=== PATIENT | female | born 1980 | race Caucasian/White ===

== ENCOUNTER → 2021-02-15 13:47 | Outpatient (BNVA) | payer BC, MEDICAID, SELFPAY | PROVIDERS: Family Provider Nurse Practitioner Family; Visit Provider Nurse Practitioner Family | DX: J32.0 Chronic maxillary sinusitis (principal); R05.9 Cough, unspecified; R50.9 Fever, unspecified; Z20.822 Contact with and (suspected) exposure to COVID-19 | CPT/HCPCS: 87635 ==

== ENCOUNTER 2021-02-18 11:40 | Emergency (ER) | payer BC, MEDICAID, SELFPAY ==
[2021-02-18 11:51] VITALS: BMI 30.1
--- NOTE | 2021-02-18 11:51 | CT_ITS ---
WS: [id number] CT HEAD TECHNIQUE: Noncontrast CT of the head obtained from the skullbase to the vertex. CLINICAL INFORMATION: R mastoid tenderness COMPARISON: 3 14,018 DLP: 697.[address] scans at [facility] use at least one of these dose optimization techniques: automated e xposure control; mA and/or kV adjustment per patient size (includes targeted exams where dose is matc hed to clinical indication); or iterative reconstruction. FINDINGS: No evidence of intracranial hemorrhage or mass effect. Ventricular system and basal cisterns are carlson nt. No extra-axial fluid collections. No evidence of mass or mass effect. Normal oliver-white different iation. Paranasal sinuses and mastoid air cells are well aerated. .Normal visualized soft tissues. CT/CT head wo con* [id number] IMPRESSION: 1. No evidence of intracranial hemorrhage or mass effect. 2. Normal oliver-white differentiation. 3. Mastoid air cells well aerated. 4. No acute intracranial findings.
--- NOTE | 2021-02-18 12:00 | W.ED.GENADLT ---
HPI - General Adult General: Chief complaint: Abdominal Pain Stated complaint: N/V, WEAKNESS X 2 DAYS Time Seen by Provider: 02/18/21 11:42 History of Present Illness: HPI narrative: Patient is a 40-year-old female presents emergency room with 2 days of cough, nausea/vomiting, vertigo-like symptoms. Patient had ear pain on Monday but has not had any ear pains sincethen. Patient tells me that on Monday, patient went to see provider Jeri Jovany was prescribed Keflex for right-sided facial swelling and sinusitis. Assessment patient has been taking her Keflex compliantly. Her facial swelling has resolved significantly. However over the last 2 days, patient has noticed intermittent episode of positional vertigo accompanied by nausea and vomiting. Patient has had 3 episodes earlier today. In addition, patient reports a cough and muscle aches. Patient has not been in contact with any COVID positive personnel's. Patient denies any abdominal complaints, diarrhea, melena hematochezia or urinary complaints. Patient has no neck pain, no focal weakness, double vision, eye pain, ear discharge, slurring of speech, facial droop, difficulty chewing, or loss/changes of sensations on the face. Denies any tinnitis. Onset: 2 days ago Duration:2 days Location:home Severity:moderate Associated symptoms: Reports nausea and vomiting; Deny chest pain, dyspnea, rash or palpitations Review of Systems Const: Denies: fever(s) or chills Eyes: Denies: change in vision ENMT: Reports: other (+vertigo symptoms); Denies: mouth pain Card: Denies: chest pain or palpitations Resp: Reports: non-productive cough; Denies: dyspnea GI: Reports: nausea and vomiting; Denies: abdominal pain or diarrhea : Denies: dysuria Musc: Denies: extremity pain Skin/Breast: Denies: rash or new lesions Neuro: Denies: weakness in extremities Psych: Reports: other (Normal mood) Rikki/Lymph: Denies: easy bruising [facility] ED PFSH: Medical History Maxillary sinusitis Family History Denies family history of CAD (coronary artery disease) Cancer Social History Smoking and tobacco status: current every day smoker Physical Exam Const: COMMON NORMALS: alert HENMT: COMMON NORMALS: atraumatic and TM's normal bilaterally HEAD & SCALP: atraumatic TYMPANIC MEMBRANE: TM's normal bilaterally and other (+R posterior auricular tenderness to palpation) MOUTH: moist mucous membranes not abnormal OTHER: No tenderness to paelpation over the R ear on tugging of the tragus Eye: COMMON NORMALS: EOMs intact bilaterally and conjunctivae normal CONJUNCTIVA: Yes conjunctivae normal Neck/C-Spine: COMMON NORMALS: full ROM and supple Resp: COMMON NORMALS: normal respiratory effort and clear to auscultation bilaterally AUSCULTATION: clear to auscultation bilaterally Cardio: COMMON NORMALS: regular rate RATE: regular rate GI: COMMON NORMALS: Soft to palpation and non-tender PALPATION: Yes Soft to palpation Extremity: COMMON NORMALS: full ROM Neuro: SENSORIUM/ORIENTATION: Yes alert MOTOR EXAM: No Abnormal motor strength present and Other motor observations present (no focal motor deficits) OTHER: Mental status? Awake, alert, and oriented to self, year, month, location, and situation.? Following simple axial and appendicular commands.? Has appropriate fund of knowledge, comprehension, and insight.? Able to recall and understands pertinent aspects of medical history and current treatment status.? ? Language? Speech is fluent without word-finding difficulties.? Intact naming, expression, nurse receptionist, and repetition.? ? Cranial nerves? 2,3,4,6: PERRL, EOMI with no nystagmus. 5: Intact sensation to light touch, symmetric? 7: Smile symmetrical, no facial droop.? 8: Hearing grossly intact.? 9,10: Normal palate movement.? 11: Normal strength in trapezius bilaterally 12: Tongue protrudes midline.? Psych: COMMON NORMALS: speech normal SPEECH: Yes normal speech MOOD & AFFECT: Yes euthymic mood Course Vital Signs: Vital signs: Vital Signs Temperature 98.1 F 02/18/21 12:05 Pulse Rate 81 02/18/21 12:05 Respiratory Rate 16 02/18/21 12:05 Blood Pressure 110/68 02/18/21 12:05 Pulse Oximetry 99 02/18/21 12:05 MDM - General Adult MDM Narrative: Medical decision making narrative: Patient is a 40-year-old female presenting to the emergency room with concerns of cough, nausea vomiting, vertigo-like symptoms x2 days. On exam, patient has no focal findings neurologically. TM is intact bilaterally. Patient has mild right postauricular sinus palpation. Given findings, will evaluate for mastoiditis. No suspicion for meningitis, crowder booth syndrome, herpes zoster ophthalmicus, labrinythitis, or other emergent pathologies for the vertigo symptoms with nausea/vomiting. CT scan negative for any signs of mastoiditis. Patient has white count of 4.9. Patient has no vertical symptoms in the emergency room. Patient received IV Zofran, meclizine PO, IVF and GI cocktail with significant symptom. At the present time, do not suspect that this is viral or bacterial labyrinthitis. Covid test currently pending. She ambulated without any difficulty and has been able to tolerate p.o. without issues. Symptoms of cough, nausea/vomiting most likely viral related. Patient is given close follow-up with primary care provider. No signs of respiratory distress in the ED. Patient had O2 sat>95% while in the ED. Patient is aware that her covid test is pending. I have given patient follow up with our [employer] to be seen by our outpatient ENT provider for vertigo symptoms. Patient aware of a call from our [employer] to schedule for appointment(s) and verbalizes understanding of the importance of following up. I have given patient follow up with our [employer] to be seen by our PCP for nausea/vomiting and URI symptoms. Patient aware of a call from our [employer] to schedule for appointment(s) and verbalizes understanding of the importance of following up. Rx meclizine PRN vertigo, zofran PRN nausea/vomiting Disposition: Discharge. Patient counseled regarding diagnostic impression, treatment plan. Patient given ED strict return precautions to return for continuation, worsening, or development of new symptoms. Instructed to f/u w/ PCP regarding symptoms today. Patient verbalized understanding. Lab Data: Labs: Lab Results 02/18/21 02/18/21 02/18/21 12:38 12:38 12:38 WBC 4.9 10^3/uL 10^3/ uL (4.0-10.0) RBC 5.24 10^6/uL 10^6 /uL (4.1-5.3) Hgb 15.3 g/dL g/dL (11.5-15.3) Hct 45.8 % % (37.0-47.0) MCV 87.4 fl fl (81-99) MCH 29.2 pg pg (28.0-34.0) MCHC 33.4 g/dL g/dL (30.0-36.0) RDW 13.6 % % (12.1-15.1) Plt Count 228 10^3/cmm 10^3 /cmm (130-400) MPV 10.6 fL H fL (7.4-10.4) Neut % (Auto) 59.6 % % Lymph % (Auto) 29.2 % % [place] % (Auto) 9.2 % % Eos % (Auto) 1.4 % % Baso % (Auto) 0.4 % % Neut # (Auto) 2.91 10^3/uL 10^3 /uL (1.8-7.7) Lymph # (Auto) 1.4 10^3/uL 10^3/ uL (0.8-4.8) [place] # (Auto) 0.5 10^3/uL 10^3/ uL (0.2-0.9) Eos # (Auto) 0.1 10^3/uL 10^3/ uL (0.0-0.8) Baso # (Auto) 0.0 10^3/uL 10^3/ uL (0.0-0.1) Nucleated RBC % (a uto) 0 % % Nucleated RBCs # 0.0 /100WBC /100W BC Sodium 138 mmol/L mmol/L (136-145) Potassium 3.6 mmol/L mmol/L (3.5-5.1) Chloride 100 mmol/L mmol/L (98-107) Carbon Dioxide 24 mmol/L mmol/L (22-29) Anion Gap 17.6 (5-19) BUN 13 mg/dL mg/dL (6-20) Creatinine 0.7 mg/dL mg/dL (0.5-0.9) GFR Calculation 93.2 mL/min mL/mi n (90-130) Glucose 85 mg/dL mg/dL (65-115) Calculated Osmolal ity 285 mOsm/kg mOsm/ kg (285-295) Calcium 8.2 mg/dL L mg/dL (8.5-10.5) Total Bilirubin 0.3 mg/dL mg/dL (0.15-1.2) AST 20 U/L U/L (0-32) ALT 26 U/L U/L (0-33) Alkaline Phosphata se 91 IU/L IU/L (35-105) Total Protein 7.6 g/dL g/dL (6.6-8.7) Albumin 3.9 g/dL g/dL (3.5-5.2) Globulin 3.7 g/dL g/dL (1.3-4.6) Lipase 22 U/L U/L (13-60) HCG, Qual Negative (Negative) Imaging Data^: Other Imaging: Radiologist's impression: [address] [id number] Scan ReportSigned Patient: Delfina Mcintosh #: [id number]: [id number]#:[id number]/Sex: 40 / FADM Date: 02/18/21Loc: ERRoom/Bed:Attending Dr: Ordering Provider/Ordering MD: Bharathi Pat MD Date of Service: 02/18/21 Procedure(s): CT facial bones wo con* [id number] Accession Number(s): [id number] Report Number: [id number] WS: [id number] CT FACIAL BONES TECHNIQUE: Noncontrast facial bones with coronal and sagittal reformatted images. CLINICAL INFORMATION: eval for infection COMPARISON: None. DLP: 724.[address] scans at [facility] use at least one of these dose optimization techniques: automated exposure control; mA and/or kV adjustment per patient size (includes targeted exams where dose is matched to clinical indication); or iterative reconstruction. FINDINGS: Trace mucosal thickening in the paranasal sinuses. No evidence of sinusitis. Mastoid air cells are well aerated. No evidence of mastoiditis. Normal visualized soft tissues. External auditory canals appear patent. Normal posterior nasopharynx. Normal parapharyngeal fat. Normal parotid glands and submandibular glands. Subchondral cystic change with degenerative flattening involving the right mandibular condyle. Left mandibular condyle is normal. CT/CT facial bones wo con* [id number] IMPRESSION: 1. Mastoid air cells well aerated. No evidence of mastoiditis. 2. Trace mucosal thickening in the paranasal sinuses. No evidence of sinusitis. 3. Subchondral cystic change with flattening of the right mandibular condyle. Recommend correlation for right TMJ symptoms. Left mandibular condyle is normal. 4. No other significant findings. Dictated By:Roel Cardenas MDSigned By:Roel Cardenas MDSigned Date/Time:02/18/21 1308DD/ 1303 [facility] [place], [place] [address]QM Scan ReportSigned Patient: Delfina Mcintosh #: [id number]: [id number]#:[id number]/Sex: 40 / FADM Date: 02/18/21Loc: ERRoom/Bed:Attending Dr: Ordering Provider/Ordering MD: Bharathi Pat MD Date of Service: 02/18/21 Procedure(s): CT head wo con* [id number] Accession Number(s): [id number] Report Number: [id number] WS: [id number] CT HEAD TECHNIQUE: Noncontrast CT of the head obtained from the skullbase to the vertex. CLINICAL INFORMATION: R mastoid tenderness COMPARISON: 3 14,018 DLP: 697.[address] scans at [facility] use at least one of these dose optimization techniques: automated exposure control; mA and/or kV adjustment per patient size (includes targeted exams where dose is matched to clinical indication); or iterative reconstruction. FINDINGS: No evidence of intracranial hemorrhage or mass effect. Ventricular system and basal cisterns are patent. No extra-axial fluid collections. No evidence of mass or mass effect. Normal oliver-white differentiation. Paranasal sinuses and mastoid air cells are well aerated. .Normal visualized soft tissues. CT/CT head wo con* [id number] IMPRESSION: 1. No evidence of intracranial hemorrhage or mass effect. 2. Normal oliver-white differentiation. 3. Mastoid air cells well aerated. 4. No acute intracranial findings. Dictated By:Roel Cardenas MDSigned By:Roel Cardenas MDSigned Date/Time:02/18/21 1303DD/ 1259 Discharge Plan Discharge Patient Disposition: Home Clinical Impression: Nausea & vomiting, Cough, Vertigo Condition: Stable Prescriptions: New Zofran 4 mg tablet 4 mg PO TID PRN (Reason: nausea and vomiting) 4 Days Qty: 12 RF: 0 acetaminophen 500 mg tablet 500 mg PO Q6H PRN (Reason: pain) 5 Days Qty: 20 RF: 0 Pepcid 20 mg tablet 20 mg PO BID PRN (Reason: abdominal pain) 10 Days Qty: 20 RF: 0 meclizine 25 mg tablet 25 mg PO BID PRN (Reason: vertigo) 5 Days Qty: 10 RF: 0 No Action methylprednisolone [Medrol (Franco)] 4 mg tablets,dose pack See Rx Instructions PO PER PKG DIR Qty: 21 RF: 0 cephalexin 500 mg capsule 500 mg PO TID 10 Days Qty: 30 RF: 0 levocetirizine [Xyzal] 5 mg tablet 5 mg PO DAILY 90 Days Qty: 90 RF: 1 Discharge Orders: Discharge ED (Routine); Ordered 02/18/21 Ordered By: Bharathi Pat Discharge Diet: Advance as tolerated Discharge Activity: Resume usual activity Patient Instructions: Dizziness (ED), Acute Cough (ED) Activity Restrictions/Additional Instructions: Our [employer] [employer] will have you follow-up with an ear/nose/throat doctor in the next few days. You would be expected to have a phone call with our [employer] who will put you on the schedule. I think this is more lightheadedness, nausea/vomiting inability to hold food or liquid down fever chills, ear pain, worsening strength sensation or any new external complaints Stand Alone Forms: Work/School Release Coding Level of Care Code ED Synthetic Department Supervisor for Chg Fwd Exam Comprehensive
--- NOTE | 2021-02-18 12:03 | CT_ITS ---
WS: OMCRAD2 CT FACIAL BONES TECHNIQUE: Noncontrast facial bones with coronal and sagittal reformatted images. CLINICAL INFORMATION: eval for infection COMPARISON: None. DLP: 724.[address] scans at [facility] use at least one of these dose optimization techniques: automated e xposure control; mA and/or kV adjustment per patient size (includes targeted exams where dose is matc hed to clinical indication); or iterative reconstruction. FINDINGS: Trace mucosal thickening in the paranasal sinuses. No evidence of sinusitis. Mastoid air ce lls are well aerated. No evidence of mastoiditis. Normal visualized soft tissues. External auditory c anals appear patent. Normal posterior nasopharynx. Normal parapharyngeal fat. Normal parotid glands a nd submandibular glands. Subchondral cystic change with degenerative flattening involving the right mandibular condyle. Left m andibular condyle is normal. CT/CT facial bones wo con* [id number] IMPRESSION: 1. Mastoid air cells well aerated. No evidence of mastoiditis. 2. Trace mucosal thickening in the paranasal sinuses. No evidence of sinusitis . 3. Subchondral cystic change with flattening of the right mandibular condyle. Recommend correlation for right TMJ symptoms. Left mandibular condyle is normal . 4. No other significant findings.
[2021-02-18 12:05] VITALS: BP 110/68; PULSE 81; RESP 16; TEMP 36.7; O2SAT 99
[2021-02-18 12:51] LABS: Basophils % 0.4 %; Eosinophils # 0.1 10^3/uL (0.0-0.8); Eosinophils % 1.4 %; Hematocrit 45.8 % (37.0-47.0); Hemoglobin 15.3 g/dL (11.5-15.3); Lymphocytes # 1.4 10^3/uL (0.8-4.8); Lymphocytes % 29.2 %; Mean Corpuscular HGB Conc 33.4 g/dL (30.0-36.0); Mean Corpuscular Hemoglobin 29.2 pg (28.0-34.0); Mean Corpuscular Volume 87.4 fl (81-99); Mean Platelet Volume 10.6 fL (7.4-10.4); Monocytes # 0.5 10^3/uL (0.2-0.9); Monocytes % 9.2 %; Neutrophils # 2.91 10^3/uL (1.8-7.7); Neutrophils % 59.6 %; Nucleated Red Blood Cells % 0 %; Platelet Count 228 10^3/cmm (130-400); Red Blood Count 5.24 10^6/uL (4.1-5.3); Red Cell Distribution Width 13.6 % (12.1-15.1); White Blood Count 4.9 10^3/uL (4.0-10.0)
[2021-02-18] MEDS: lidocaine 2% viscous 15 ML, aluminum-mag hydrox-simethicon 30 ML, sucralfate oral liq 1 GM PO (12:52)
[2021-02-18] MEDS: meclizine 25 mg tablet 50 MG PO (12:54)
[2021-02-18] MEDS: ondansetron 2 mg/ML SDV 2 mL 4 MG IVP (12:55)
[2021-02-18] MEDS: sodium chloride 0.9% 1,000 ML 999 ML IV (12:56)
[2021-02-18 13:00] LABS: HCG, Serum Qual Negative (Negative)
[2021-02-18 13:12] LABS: Alanine Aminotransferase 26 U/L (0-33); Albumin Level 3.9 g/dL (3.5-5.2); Alkaline Phosphatase 91 IU/L (35-105); Anion Gap 17.6 (5-19); Aspartate Amino Transferase 20 U/L (0-32); Blood Urea Nitrogen 13 mg/dL (6-20); Calcium 8.2 mg/dL (8.5-10.5); Carbon Dioxide 24 mmol/L (22-29); Chloride 100 mmol/L (98-107); Globulin 3.7 g/dL (1.3-4.6); Glomerular Filtration Rate 93.2 mL/min (90-130); Glucose 85 mg/dL (65-115); Lipase 22 U/L (13-60); Osmolality Calculated 285 mOsm/kg (285-295); Potassium 3.6 mmol/L (3.5-5.1); Sodium 138 mmol/L (136-145); Total Bilirubin 0.3 mg/dL (0.15-1.2); Total Protein 7.6 g/dL (6.6-8.7)
--- NOTE | 2021-02-18 14:10 | PC.NURSE ---
VISUAL ACUITY TEST PERFORMED. VISUAL MILLER READ 20/20.
[2021-02-18 14:15] VITALS: BP 122/71; PULSE 80; O2SAT 98
--- NOTE | 2021-02-19 09:07 | DCPLANNER ---
manager human resources had message to schedule a follow up appointment for patient with ENT. manager human resources emailed Joan Swartz and Ilsa at [facility] General Surgery / ENT clinic. Patients information will be printed and reviewed. Clinic will call patient with appointment information.
--- NOTE | 2021-02-19 09:11 | DCPLANNER ---
product manager also had message to speak with patient about getting established with a primary care physician. product manager called phone number [phone], unable to speak with patient at this time. product manager was able to leave a voicemail for patient to return returned case inspector phone call.
--- NOTE | 2021-02-22 07:37 | DCPLANNER ---
Patient has a follow up appointment scheduled for Wednesday, March 03, 2021 at 1:[address] Montes. Clinic will call patient with appointment information.
--- NOTE | 2021-02-22 07:50 | DCPLANNER ---
Addendum entered by Cate Carvajal 03/11/21 16:58: Patient had a follow up appointment scheduled for 03.03.21 with ENT - patient did not attend appointment. Original Note: Patient has a follow up appointment scheduled for Wednesday, March 03, 2021 at 1:[address] Montes at ENT. Clinic will call patient with appointment information.
== END 2021-02-18 14:17 | disposition home or self-care (01) ==
PROVIDERS: Emergency Provider Emergency Medicine
DX: R05.9 Cough, unspecified (principal); R11.2 Nausea with vomiting, unspecified; R42 Dizziness and giddiness; F17.210 Nicotine dependence, cigarettes, uncomplicated
CPT/HCPCS: 70450; 70486; 80053; 83690; 84703; 85025; 96361; 96374; 99284; J2405; J7030; J8597

== ENCOUNTER 2021-05-25 14:22 | Outpatient (CLI) | payer BC, MEDICAID, SELFPAY ==
--- NOTE | 2021-05-25 14:39 | MM_ITS ---
WS: OMCRAD2 BILATERAL 3D TOMOSYNTHESIS DIGITAL DIAGNOSTIC MAMMOGRAPHY WITH CAD CLINICAL INFORMATION: right breast increasing in size, breast pain HISTORY: History of fibrous tumors. RIGHT breast pain and soreness. History of RIGHT nipple piercing. Fibrocystic breasts. COMPARISON: None. TECHNIQUE: Bilateral CC, MLO, and ML views. FINDINGS: Scattered fibroglandular densities bilaterally. No definite mammographic abnormalities in the area of pain in RIGHT breast. Ultrasound is pending. Lucent centered calcification RIGHT breast. LEFT breast is unremarkable. ULTRASOUND BREAST RIGHT TECHNIQUE: Ultrasound right breast focused area of concern. CLINICAL INFORMATION: right breast increasing in size, breast pain FINDINGS: Ultrasound RIGHT breast 12-6 clock position. Normal underlying dense parenchymal tissue. Incidental c yst with through transmission at the 4:00 position near the areola with a small amount of debris. Sma ll slightly complex cyst measures approximately 3.1 x 2.4 x 4.8 mm. No other suspicious findings. Rec carole return to annual screening mammography. MM/[place] [id number] IMPRESSION: BI-RADS: 2-Benign FOLLOW UP: 1 Year Follow-up
== END 2021-05-25 14:23 | disposition home or self-care (01) ==
LOC: RAD 14:24
PROVIDERS: PCP Nurse Practitioner Family; Visit Provider Nurse Practitioner Family
DX: N64.4 Mastodynia (principal); N62 Hypertrophy of breast; N60.01 Solitary cyst of right breast
CPT/HCPCS: 76642; 77062

== ENCOUNTER → 2021-06-18 13:30 | Outpatient (BNVA) | payer BC, MEDICAID, SELFPAY | PROVIDERS: PCP Nurse Practitioner Family; Visit Provider Nurse Practitioner Family | DX: Z11.52 Encounter for screening for COVID-19 (principal); R59.9 Enlarged lymph nodes, unspecified; H68.109 Unspecified obstruction of Eustachian tube, unspecified ear; J32.0 Chronic maxillary sinusitis; R50.9 Fever, unspecified; J06.9 Acute upper respiratory infection, unspecified | CPT/HCPCS: 87635 ==

== ENCOUNTER → 2021-07-01 15:04 | Outpatient (BNVA) | payer BC, MEDICAID, SELFPAY | PROVIDERS: PCP Nurse Practitioner Family; Visit Provider Nurse Practitioner Family | DX: R00.2 Palpitations (principal); R53.83 Other fatigue; R59.9 Enlarged lymph nodes, unspecified; Z13.9 Encounter for screening, unspecified | CPT/HCPCS: 80053; 80061; 82306; 84443 ==

== ENCOUNTER → 2021-10-19 17:13 | Outpatient (BNVA) | payer BC, MEDICAID, SELFPAY | PROVIDERS: PCP Nurse Practitioner Family; Visit Provider Nurse Practitioner Family | DX: R74.8 Abnormal levels of other serum enzymes (principal); R00.2 Palpitations; E55.9 Vitamin D deficiency, unspecified; R55 Syncope and collapse; Z13.1 Encounter for screening for diabetes mellitus; R61 Generalized hyperhidrosis; R53.83 Other fatigue; Z13.220 Encounter for screening for lipoid disorders | CPT/HCPCS: 80053; 80061; 83036; 84439; 84443; 84481 ==

== ENCOUNTER 2021-11-02 14:23 | Outpatient (CLI) | payer BC, MEDICAID, SELFPAY ==
--- NOTE | 2021-11-02 15:00 | US_ITS ---
WS: [id number] RIGHT UPPER QUADRANT ULTRASOUND HISTORY: elevated liver enzymes COMPARISON: None available. Liver: 14.4 cm in length. Normal size liver. No bile duct dilatation or mass. Portal Vein: Normal hepatopetal flow with monophasic waveform. Gallbladder: Normally distended gallbladder with no stones or wall thickening. CBD: 0.2 cm Pancreas: Normal size and echogenicity. Right kidney: 9.3 cm in length. Normal size and echogenicity. No hydronephrosis or mass. Aorta and IVC: Unremarkable abdominal aorta and IVC. No ascites. US/US liver [id number] IMPRESSION: Normal RIGHT upper quadrant ultrasound.
== END 2021-11-02 14:24 | disposition home or self-care (01) ==
LOC: RAD 14:23
PROVIDERS: PCP Nurse Practitioner Family; Visit Provider Nurse Practitioner Family
DX: R74.8 Abnormal levels of other serum enzymes (principal)
CPT/HCPCS: 76705